=== PATIENT | male | born 1970 | race Caucasian/White ===

== ENCOUNTER → 2016-10-11 | Outpatient (CLI) | payer OTHER ==
[~2016-10-11] VITALS: Ht 182.9 cm; Wt 84.2 kg
[2016-10-11] VITALS (14 sets, daily range): BP systolic 128–150; BP diastolic 69–108; PULSE 55–66
[~2016-10-11] MED LIST: CEPHALEXIN500 M1 PO; NORCO 325 MG-51 TAB PO; SEPTRA DS 8001 TAB PO; TYLENOL PM EXTR1 TA1 PO
[2016-10-11 10:09] LABS: PROTHROMBIN TIME 11.6 SECONDS (9.7-12.8)
== END ==
LOC: COL.RAD 10-04 09:00
PROVIDERS: Physician Assistant
DX: B18.2 Chronic viral hepatitis C (principal); F17.200 Nicotine dependence, unspecified, uncomplicated
CPT/HCPCS: 25757